=== PATIENT | male | born 1990 | race Two or more races ===

== ENCOUNTER 2017-06-18 13:36 | Emergency (ER) | payer BC, MEDICAID ==
[~2017-06-18] VITALS: Ht 182.9 cm; Wt 86.2 kg
[2017-06-18 13:59] VITALS: BP 143/82
[2017-06-18] MEDS ORDERED: LIDOCAINE 1% HCL (LOCAL ANESTH.) INJ 20ML MDV ONE (14:03)
[2017-06-18] MEDS ORDERED: TETANUS-DIPTH-ACEL PERTUSSIS 0.5ML SYRG IM ONE (15:15)
== END 2017-06-18 15:54 | disposition home or self-care (01) ==
LOC: ER 13:36
DX: S61.210A Laceration without foreign body of right index finger without damage to nail, initial encounter (principal); W01.0XXA Fall on same level from slipping, tripping and stumbling without subsequent striking against object, initial encounter; Y93.89 Activity, other specified; Y92.89 Other specified places as the place of occurrence of the external cause; Y99.8 Other external cause status
CPT/HCPCS: 12002; 73140; 90471; 90715; 99284; J2001

== ENCOUNTER 2017-06-28 11:24 | Emergency (ER) | payer MEDICAID ==
[~2017-06-28] VITALS: Ht 188 cm; Wt 83.9 kg
[2017-06-28 11:36] VITALS: BP 129/73
== END 2017-06-28 11:58 | disposition home or self-care (01) ==
LOC: ER 11:24
DX: S61.210D Laceration without foreign body of right index finger without damage to nail, subsequent encounter (principal)

== ENCOUNTER 2021-08-25 01:51 | Emergency (ER) | payer SELFPAY ==
[~2021-08-25] VITALS: Ht 180.3 cm; Wt 86.2 kg
[2021-08-25 01:54] VITALS: BP 146/83
[2021-08-25] MEDS ORDERED: CEPH-509 PO (06:30)
[2021-08-25] MEDS ORDERED: cefTRIAXone SOD 1,000 MG VL IM ONE ×2 (06:30)
[2021-08-25] MEDS ORDERED: IBUP800T27 PO (06:30)
== END 2021-08-25 06:42 | disposition home or self-care (01) ==
LOC: ER 01:53
DX: L03.012 Cellulitis of left finger (principal)
CPT/HCPCS: 73140; 96372; 99283; J0696